=== PATIENT | female | born 1945 | race Hispanic/Latino ===

== ENCOUNTER 2016-06-11 06:06 | Emergency (ER) | payer MEDICARE, BC ==
[2016-06-11 06:12] VITALS: TEMP 98.5
[2016-06-11] MEDS ORDERED: Sodium Chloride 0.9% 1,000 ML IV STA (06:26)
--- NOTE | 2016-06-11 06:39 | ED PDOC ---
HPI: Abdomen Time Seen by Provider: 06/11/16 06:25 Chief Complaint (Nursing): GI Problem History Per: Patient History/Exam Limitations: no limitations Onset/Duration Of Symptoms: Hrs Outside of [place] travel?: No Current Symptoms Are (Timing): Still Present Associated Symptoms: Nausea, Vomiting Additional Complaint(s): Hx of HTN, HLD, Hypothyroidis p/w n/v/d, states she ate food at "[employer]" at 6PM, later that night started to have mult episodes of NBNB vomiting and diarrhea >5 episodes. states she passed out on the cough at one point during an episode of vomiting, did not hit head. No fevers. No abdominal pain. Past Medical History Reviewed: Historical Data, Nursing Documentation, Vital Signs Vital Signs: Last Vital Signs Temp 98.5 F 06/11/16 06:09 Pulse 87 06/11/16 06:09 Resp 18 06/11/16 06:09 BP 113/71 06/11/16 06:09 Pulse Ox 98 06/11/16 06:09 - Medical History PMH: HTN, Hypercholesterolemia, Hypothyroidism - Family History Family History: States: Unknown Family Hx - Allergies Allergies/Adverse Reactions: Allergies Allergy/AdvReac Type Severity Reaction Status Date / Time No Known Allergies Allergy Verified 06/11/16 06:09 Review of Systems ROS Statement: Except As Marked, All Systems Reviewed And Found Negative Constitutional: Negative for: Fever Gastrointestinal: Positive for: Nausea, Vomiting, Diarrhea. Negative for: Abdominal Pain Physical Exam - Reviewed Nursing Documentation Reviewed: Yes Vital Signs Reviewed: Yes - Physical Exam Appears: Positive for: Well, Non-toxic, No Acute Distress Head Exam: Positive for: ATRAUMATIC, NORMAL INSPECTION, NORMOCEPHALIC Skin: Positive for: Normal Color, Warm, DRY Eye Exam: Positive for: EOMI, Normal appearance, PERRL ENT: Positive for: Normal ENT Inspection Neck: Positive for: Normal, Painless ROM Cardiovascular/Chest: Positive for: Regular Rate, Rhythm Respiratory: Positive for: CNT, Normal Breath Sounds Gastrointestinal/Abdominal: Positive for: Normal Exam, Bowel Sounds, Soft Back: Positive for: Normal Inspection Extremity: Positive for: Normal ROM Neurologic/Psych: Positive for: Alert, Oriented - ECG O2 Sat by Pulse Oximetry: 98 Pulse Ox Interpretation: Normal Medical Decision Making Medical Decision Making: Likely viral gastroenteritis, will replete fluids, check labs and reassess. Will sign out patient to Dr. Roldan pending labs and reassessment. Disposition - Clinical Impression Clinical Impression: Gastroenteritis - Disposition Disposition: Transfer of Care Disposition Time: 07:00 Condition: STABLE Patient Signed Over To: Lin Roldan Handoff Comments: pending labs, reassessment
[2016-06-11 06:43] LABS: BASO # 0.1 K/uL (0.0-0.2); BASO % 0.7 % (0.0-2.0); EOS % 0.3 % (0.0-4.0); HEMATOCRIT 47.6 % (34.0-47.0); LYMPH # 1.3 K/uL (1.0-4.3); LYMPH % 14.1 % (20.0-40.0); MEAN CELL VOLUME 94.4 fl (81.0-99.0); MEAN CORPUSCULAR HEMOGLOBIN 31.7 pg (27.0-31.0); MEAN CORPUSCULAR HGB CONC 33.6 g/dL (33.0-37.0); MEAN PLATELET VOLUME 10.7 fl (7.2-11.7); MONO % 10.7 % (0.0-10.0); NEUT # 7.1 K/uL (1.8-7.0); NEUT % 74.2 % (50.0-75.0); NRBC % 0.2 % (0.0-0.0); RED CELL DISTRIBUTION WIDTH 13.4 % (11.5-14.5); WHITE BLOOD COUNT 9.6 K/uL (4.8-10.8)
[2016-06-11 06:48] LABS: ALB/GLOB RATIO 1.1 (1.0-2.1); ALKALINE PHOSPHATASE 121 U/L (38-126); ALT/SGPT 37 U/L (9-52); AST/SGOT 31 U/L (14-36); BILIRUBIN,TOTAL 1.6 mg/dl (0.2-1.3); BLOOD UREA NITROGEN 18 mg/dl (7-17); CALCIUM 9.9 mg/dL (8.4-10.2); CARBON DIOXIDE 24 mmol/L (22-30); CHLORIDE 101 mmol/L (98-107); GFR AFRICAN-AMERICAN > 60; GLUCOSE,RANDOM 179 mg/dL (65-105); LIPASE 185 U/L (23-300); POTASSIUM 3.3 MMOL/L (3.6-5.0); SODIUM 143 mmol/l (132-148); TOTAL PROTEIN 8.4 G/DL (6.3-8.2)
[2016-06-11 07:26] VITALS: BP 133/69; PULSE 85; RESP 16; O2SAT 100
[2016-06-11] MEDS ORDERED: Potassium Chloride 20 mEq ER Tab PO STA (07:35)
--- NOTE | 2016-06-11 07:44 | ED PDOC ---
- Laboratory Results Result Diagrams: 06/11/16 06:40 06/11/16 06:40 - ECG O2 Sat by Pulse Oximetry: 100 Medical Decision Making Medical Decision Making: Time: 0700 Patient signed out by Dr. Tan pending PO challenge and disposition Scribe Attestation: Documented by Apolonia Nava acting as a scribe for Lin Roldan MD MD Scribe Attestation: All medical record entries made by the Scribe were at my direction and personally dictated by me. I have reviewed the chart and agree that the record accurately reflects my personal performance of the history, physical exam, medical decision making, and the department course for this patient. I have also personally directed, reviewed, and agree with the discharge instructions and disposition. 7.45a - patient not nauseous anymore. ordered PO challenge. Disposition Doctor Will See Patient In The: Office Counseled Patient/Family Regarding: Diagnosis, Need For Followup, Rx Given - Clinical Impression Clinical Impression: Gastroenteritis - POA Present On Arrival: None - Disposition Referrals: Derick Meza MD [Family Provider] - Disposition: Routine/Home Disposition Time: 08:53 Condition: IMPROVED Prescriptions: Ondansetron [Zofran] 4 mg PO Q8H #9 tab Instructions: Gastroenteritis (ED)
== END 2016-06-11 09:19 | disposition home or self-care (01) ==
LOC: H.ER 06:06
DX: K52.9 Noninfective gastroenteritis and colitis, unspecified (principal)
CPT/HCPCS: 80053; 83690; 85025; 96361; 96374; 99284; J2405; J7040